=== PATIENT | female | born 1960 | race Caucasian/White ===

== ENCOUNTER 2018-02-01 06:18 | Emergency (ER) | payer BC ==
[2018-02-01 10:40] LABS: CHLORIDE,CL 103 mmol/L (98-107); SODIUM,NA 139 mmol/L (136-145)
--- NOTE | 2018-02-01 11:12 | EDM.PDOC ---
ED HPI GENERAL MEDICAL PROBLEM - General Chief Complaint: Chest Pain Stated Complaint: anterior chest pain Time Seen by Provider: 02/01/18 06:31 Source of Information: Reports: Patient History Limitations: Reports: No Limitations - History of Present Illness INITIAL COMMENTS - FREE TEXT/NARRATIVE: Pt. states that she developed onset of anterior chest pain while getting ready for work today. She states that she was feeling well prior to this. Denies any shortness of breath. No fever or chills. No weakness or hemoptysis. She denies any abdominal pain. No arm, jaw, neck or back pain. Pt. states that she recently stopped smoking. It is respirophasic in nature. She describes it as sharp. Onset: Today (617) Onset Date: 02/01/18 Onset Time: 06:18 Location: Reports: Chest - Related Data Allergies Allergy/AdvReac Type Severity Reaction Status Date / Time No Known Drug Allergies Allergy Other Verified 04/28/15 06:06 morphine AdvReac Nausea and Verified 04/28/15 06:06 Vomiting Home Meds: Home Meds Fish Oil/Borage/Flax/Om3,6,9#1 [[place] 3-6-9 Complex Softgel] 1 each PO DAILY 12/22 [History] Lutein/Minerals/Vit A,C & E [Ocuvite] 1 tab PO DAILY 02/07/14 [History] Metoprolol Succinate [Toprol Xl] 50 mg PO DAILY 02/07/14 [History] Vitamin B Complex [B Complex] 1 each PO DAILY 02/07/14 [History] Magnesium Oxide 400 mg PO DAILY 02/15/14 [History] Aspirin [Philip Chewable] 81 mg PO DAILY 07/18/14 [History] LORazepam 0.5 mg PO TID #3 tablet 03/03/15 [Rx] chlordiazePOXIDE [Librium] 10 mg PO TID #60 cap 03/03/15 [Rx] chlordiazePOXIDE [Librium] 25 mg PO BID #2 cap 03/03/15 [Rx] valACYclovir [Valtrex] 08/22/16 [History] Social & Family History - Tobacco Use Smoking Status *Q: Current Every Day Smoker Years of Tobacco use: 40 Packs/Tins Daily: 1 - Alcohol Use Days Per Week of Alcohol Use: 0 Number of Drinks Per Day: 0 Total Drinks Per Week: 0 - Recreational Drug Use Recreational Drug Use: No Drug Use in Last 12 Months: No ED ROS GENERAL - Review of Systems Review Of Systems: See Below Constitutional: Reports: No Symptoms HEENT: Reports: No Symptoms Respiratory: Reports: Pleuritic Chest Pain. Denies: Shortness of Breath, Wheezing, Cough, Sputum, Hemoptysis Cardiovascular: Reports: No Symptoms. Denies: Dyspnea on Exertion, Orthopnea, Palpitations, PND, Syncope Endocrine: Reports: No Symptoms GI/Abdominal: Reports: No Symptoms : Reports: No Symptoms Musculoskeletal: Reports: No Symptoms Skin: Reports: No Symptoms Neurological: Reports: No Symptoms Psychiatric: Reports: No Symptoms Hematologic/Lymphatic: Reports: No Symptoms Immunologic: Reports: No Symptoms ED EXAM, GENERAL - Physical Exam Exam: See Below Exam Limited By: No Limitations General Appearance: Alert, WD/WN, No Apparent Distress Respiratory/Chest: No Respiratory Distress, Lungs Clear, Normal Breath Sounds, No Accessory Muscle Use, Chest Non-Tender Cardiovascular: Normal Peripheral Pulses, Regular Rate, Rhythm, No Edema, No Gallop, No JVD, No Murmur, No Rub Peripheral Pulses: 3+: Radial (L), Radial (R) GI/Abdominal: Normal Bowel Sounds, Soft, Non-Tender, No Organomegaly, No Distention, No Abnormal Bruit, No Mass Back Exam: Normal Inspection, Full Range of Motion, NT Extremities: Normal Inspection, Normal Range of Motion, Non-Tender, Normal Capillary Refill, No Pedal Edema Neurological: Alert, Oriented, CN II-XII Intact, Normal Cognition, Normal Gait, Normal Reflexes, No Motor/Sensory Deficits Psychiatric: Normal Affect, Normal Mood Skin Exam: Warm, Dry, Intact, Normal Color, No Rash Course - Orders/Labs/Meds Orders: Active Orders 24 hr Category Date Time Status Chest 2V [CR] Routine Exams 02/01/18 06:30 Taken Labs: Laboratory Tests 02/01/18 02/01/18 02/01/18 Range/Units 06:48 06:48 06:48 WBC 6.8 (4.0-10.0) x10^3/uL RBC 4.19 (4.00-5.50) x10^6/uL Hgb 14.3 (12.0-16.0) g/dL Hct 43.5 (33.0-47.0) % MCV 103.8 H D (78.0-93.0) fL MCH 34.1 H (26.0-32.0) pg MCHC 32.9 (32.0-36.0) g/dL RDW Coeff of Álvaro 13.2 (10.0-15.0) % Plt Count 159 (130-400) x10^3/uL Neut % (Auto) 61.0 (50.0-80.0) % Lymph % (Auto) 27.5 (25.0-50.0) % Swift % (Auto) 7.5 (2.0-11.0) % Eos % (Auto) 3.4 (0.0-4.0) % Baso % (Auto) 0.6 (0.2-1.2) % D-Dimer, Quantitative < 0.19 (<=0.58) mg/LFEU Sodium 139 (136-145) mmol/L Potassium 4.7 (3.5-5.1) mmol/L Chloride 103 (98-107) mmol/L Carbon Dioxide 28 (21-32) mmol/L BUN 17 (7-18) mg/dL Creatinine 0.8 (0.55-1.02) mg/dL Est Cr Clr Drug Dosing TNP Estimated GFR (MDRD) > 60 Glucose 120 H (74-106) mg/dL Calcium 8.6 (8.5-10.1) mg/dL POC Troponin I (0.00-0.08) ng/mL 02/01/18 Range/Units 06:48 WBC (4.0-10.0) x10^3/uL RBC (4.00-5.50) x10^6/uL Hgb (12.0-16.0) g/dL Hct (33.0-47.0) % MCV (78.0-93.0) fL MCH (26.0-32.0) pg MCHC (32.0-36.0) g/dL RDW Coeff of Álvaro (10.0-15.0) % Plt Count (130-400) x10^3/uL Neut % (Auto) (50.0-80.0) % Lymph % (Auto) (25.0-50.0) % Swift % (Auto) (2.0-11.0) % Eos % (Auto) (0.0-4.0) % Baso % (Auto) (0.2-1.2) % D-Dimer, Quantitative (<=0.58) mg/LFEU Sodium (136-145) mmol/L Potassium (3.5-5.1) mmol/L Chloride (98-107) mmol/L Carbon Dioxide (21-32) mmol/L BUN (7-18) mg/dL Creatinine (0.55-1.02) mg/dL Est Cr Clr Drug Dosing Estimated GFR (MDRD) Glucose (74-106) mg/dL Calcium (8.5-10.1) mg/dL POC Troponin I 0.00 (0.00-0.08) ng/mL Departure - Departure Time of Disposition: 07:37 Disposition: Home, Self-Care 01 Condition: Good Clinical Impression: Atypical chest pain - Discharge Information Referrals: PCP,Unknown [Primary Care Provider] - Forms: ED Department Discharge - My Orders Last 24 Hours: My Active Orders 02/01/18 06:30 Chest 2V [CR] Routine - Assessment/Plan Last 24 Hours: My Active Orders 02/01/18 06:30 Chest 2V [CR] Routine
[2018-02-01] MEDS ORDERED: Ketorolac 60 MG/2 ML SDV IM ONE (12:07)
== END 2018-02-01 07:37 | disposition home or self-care (01) ==
LOC: VM.ED 06:18
DX: R07.89 Other chest pain (principal); F17.210 Nicotine dependence, cigarettes, uncomplicated; Z79.82 Long term (current) use of aspirin; Z79.899 Other long term (current) drug therapy; Z88.5 Allergy status to narcotic agent
CPT/HCPCS: 36415; 71046; 80048; 84484; 85025; 85379; 96372; 99285; J1885

== ENCOUNTER 2019-03-31 10:10 | Day surgery (SDC) | payer BC ==
[~2019-03-31 10:10] MED LIST: Lactated Ringers 1,000 ML IV SCH; Sodium Chloride 0.9% 10 ML Syringe FLUSH PRN
[2019-03-31] MEDS ORDERED: Albuterol/Ipratropium 3.0-0.5 MG/3 ML Neb Soln NEB ONE (11:18)
[2019-03-31] MEDS ORDERED: fentaNYL 100 MCG/2 ML SDV ONE (11:28)
[2019-03-31] MEDS ORDERED: Propofol 200 MG/20 ML SDV ONE ×2 (11:28→12:28)
--- NOTE | 2019-03-31 12:57 | OR ---
PREOPERATIVE DIAGNOSES: 1. Family history of colon cancer. 2. Personal history of polyps. POSTOPERATIVE DIAGNOSIS: Sigmoid diverticulosis, otherwise normal exam. PROCEDURE PROPOSED: Total flexible colonoscopy. PROCEDURE DONE: Total flexible colonoscopy. INDICATION: This is a 58-year-old female, who comes in for colonic surveillance every 3 years because of a strong family history of colon cancer. She had a brother with colon cancer, a grandparent, and other members who had polyps. Has other multiple cancers in the family. Last examination was 3 years ago. TECHNIQUE: The patient was brought to the endoscopy suite, placed in left lateral decubitus position. She was sedated per [employer]OVERER with propofol. The flexible video colonoscope was then passed transanally and under visualization advanced to the cecum. Examination revealed normal ascending, transverse, descending colon. Sigmoid colon revealed diverticulosis with some tortuosity and the rectum was normal. There was no evidence of any polyps, colitis, or other abnormalities, and the scope was then withdrawn. The patient tolerated the procedure well. FINAL IMPRESSION: 1. Sigmoid diverticulosis, otherwise a normal exam. 2. Family history of colon cancer. 3. Personal history of polyps. PLAN: She should continue with colonoscopic exams every 3 to 5 years hereafter. SCM: 03/31/2019 12:36:11 MODL: 03/31/2019 12:47:28 /[id number]
[2019-03-31 13:12] VITALS: BP 171/85
== END 2019-03-31 14:04 | disposition home or self-care (01) ==
LOC: VM.SDS 10:10
PROVIDERS: ATTEND Surgery
DX: K57.30 Diverticulosis of large intestine without perforation or abscess without bleeding (principal); Z86.010 Personal history of colon polyps; Z80.0 Family history of malignant neoplasm of digestive organs; K21.9 Gastro-esophageal reflux disease without esophagitis; I10 Essential (primary) hypertension; M19.90 Unspecified osteoarthritis, unspecified site; D50.9 Iron deficiency anemia, unspecified; R79.89 Other specified abnormal findings of blood chemistry; F43.23 Adjustment disorder with mixed anxiety and depressed mood; Z87.891 Personal history of nicotine dependence; Z98.890 Other specified postprocedural states; Z79.82 Long term (current) use of aspirin; Z79.899 Other long term (current) drug therapy; Z88.5 Allergy status to narcotic agent; Z87.09 Personal history of other diseases of the respiratory system
CPT/HCPCS: 94640; J2704; J3010; J7120; J7620-GY

== ENCOUNTER 2021-06-19 12:08 | Day surgery (SDC) | payer BC ==
[2021-06-19] MEDS ORDERED: Propofol 200 MG/20 ML SDV ONE (13:30)
[2021-06-19 14:09] VITALS: BP 159/79; PULSE 58
--- NOTE | 2021-06-20 08:14 | OR ---
SURGERY DATE: 06/19/2021. REFERRING PROVIDER: KURT Rasmussen PRE-OPERATIVE DIAGNOSES: 1. Chronic left upper quadrant abdominal pain along with cramps and bloating. The patient does have history of chronic alcohol use with suggestion of cirrhosis noted on previous imaging. She is on recent meloxicam 15 mg daily as well as chronic Boniva. She states she quit smoking about 2 months ago. She does drink nonalcoholic drinks lately. 2. Positive family history of gastric cancer in father. POST-OPERATIVE DIAGNOSES: 1. Moderate to significant diffuse gastritis. The patient had friable mucosa throughout. Cold biopsies were taken from the antrum x4 bites along with upper stomach body x2 bites. Mucosa was friable and bled easily. 2. Small healing ulcerations noted to the pyloric area. Biopsy of these was included in the above antral biopsy bites. PROCEDURE: Esophagogastroduodenoscopy with cold biopsy x2 sites (antrum of stomach and upper body of stomach). SURGEON: Jatin Falcon M.D. ANESTHESIA: Monitored anesthesia care. Kateryna is a 60-year-old female who was brought to the endoscopy suite after discussion of risks and benefits (including but not limited to reaction to medication, bleeding, infection, aspiration, perforation). Informed consent was obtained for monitored anesthesia care and esophagogastroduodenoscopy along with possible biopsy and/or dilatation. Pre-procedure exam including oral cavity was unremarkable. IV, oxygen, and monitors were placed. Patient was placed in the left lateral position and sedation was administered. A bite block was placed gently and scope lightly lubricated and passed through the bite block and over the tongue. Hypopharynx and vocal cords were visualized and unremarkable. Scope was passed through the cricopharynx and into the esophagus. The scope was then passed through the distal esophagus and the GE junction was visualized and photographed. The GE junction was unremarkable. Vocal cords were visualized and unremarkable. The scope was advanced into the stomach and gastric shi was suctioned. Pylorus was identified and intubated and then the scope was advanced to the third portion of the duodenum. The second and third portions of the duodenum were unremarkable. The duodenal bulb was visualized and unremarkable. The scope was brought back into the stomach. The pylorus and the antrum were remarkable for moderate to significant gastritis with some small healing ulcerations to the pyloric area. Cold biopsy x4 bites was taken from this area to check for H. pylori and sent for path. The scope was retroflexed to visualize the angularis, fundus, body, and cardia. These were remarkable for moderate to significant diffuse gastritis with friable mucosa. Cold biopsy x2 bites taken from the upper body area. The patient's stomach lining had lost much of the rugae and instead had almost cobblestone like appearance. The stomach was desufflated of air and then the scope was slowly withdrawn, and the esophagus was closely visualized during withdrawal all the way into the posterior pharynx and this was unremarkable. The patient tolerated the procedure well and went to recovery in stable condition. The patient was monitored until at baseline status. Findings and discharge instructions were reviewed and the patient was discharged in good condition. COMPLICATIONS: None. TOTAL TIME: 9 minutes. ESTIMATED BLOOD LOSS: 2 to 3 mL. RECOMMENDATIONS/FOLLOW-UP: We will await results of path report and send a letter with results. In the meantime, I am going to write 2 prescriptions; 1 for pantoprazole 40 mg daily long-term and another for sucralfate 1 g 4 times a day for the next 10 days to help coat the stomach and kick start healing process. I would recommend the patient to avoid NSAIDs, alcohol, and any tobacco. PCP could consider changing the meloxicam to Celebrex if needing anti- inflammatory. May also need to consider changing bisphosphonate if inflammation not improved and/or symptoms ongoing. I would like to kindly thank Jonas Gaona for this referral. DMB: 06/19/2021 14:08:34 MODL: 06/19/2021 15:05:58 /[id number]
== END 2021-06-19 15:05 | disposition home or self-care (01) ==
LOC: VM.SDS 12:08
PROVIDERS: ATTEND Family Medicine
DX: K25.9 Gastric ulcer, unspecified as acute or chronic, without hemorrhage or perforation (principal); K29.60 Other gastritis without bleeding; K31.89 Other diseases of stomach and duodenum; Z79.899 Other long term (current) drug therapy; Z87.891 Personal history of nicotine dependence; Z80.0 Family history of malignant neoplasm of digestive organs; Z83.71 Family history of colonic polyps
CPT/HCPCS: 00731; J2704; J7120

== ENCOUNTER 2022-07-09 10:54 | Day surgery (SDC) | payer BC, OTHER ==
[~2022-07-09 10:54] MED LIST changes: +Propofol 200 MG/20 ML SDV ONE; -Sodium Chloride 0.9% 10 ML Syringe FLUSH PRN; +fentaNYL 100 MCG/2 ML SDV ONE
[2022-07-09] MEDS ORDERED: Propofol 200 MG/20 ML SDV ONE (12:58)
[2022-07-09 13:46] VITALS: BP 127/59; PULSE 64
== END 2022-07-09 14:36 | disposition home or self-care (01) ==
LOC: VM.SDS 10:54
PROVIDERS: ATTEND Family Medicine
DX: D12.3 Benign neoplasm of transverse colon (principal); D12.2 Benign neoplasm of ascending colon; K64.4 Residual hemorrhoidal skin tags; I10 Essential (primary) hypertension; E78.5 Hyperlipidemia, unspecified; F32.A Depression, unspecified; J45.909 Unspecified asthma, uncomplicated; F17.210 Nicotine dependence, cigarettes, uncomplicated; Z98.890 Other specified postprocedural states; Z79.899 Other long term (current) drug therapy; Z88.8 Allergy status to other drugs, medicaments and biological substances
CPT/HCPCS: 00811; 45380; 45385; J2704; J3010; J7120

== ENCOUNTER → 2022-08-21 | Day surgery (SDC) | payer OTHER ==
[~2022-08-21] MED LIST changes: +Lactated Ringers 1,000 ML IV ONE; -Lactated Ringers 1,000 ML IV SCH
== END ==
LOC: VM.SDS 06:00
DX: K31.89 Other diseases of stomach and duodenum (principal); K21.9 Gastro-esophageal reflux disease without esophagitis; Z88.6 Allergy status to analgesic agent; Z79.899 Other long term (current) drug therapy; Z87.891 Personal history of nicotine dependence
CPT/HCPCS: 00811; J2704; J3010; J7120

== ENCOUNTER 2023-01-25 04:40 | Emergency (ER) | payer OTHER ==
[2023-01-25] MEDS ORDERED: Sodium Chloride 0.9% 10 ML Syringe FLUSH PRN (04:47)
[2023-01-25] MEDS ORDERED: Nitroglycerin 0.4 MG Tab.SL SL ONE (04:49)
[2023-01-25] MEDS ORDERED: Ondansetron 4 MG/2 ML SDV IVPUSH ONE (04:55)
[2023-01-25] MEDS ORDERED: HYDROmorphone 0.5 MG/0.5 ML Syringe IVPUSH ONE (04:56)
[2023-01-25] MEDS ORDERED: Sodium Chloride 0.9% 1,000 ML IV SCH (05:00)
[2023-01-25 05:21] LABS: PTT,PARTIAL THROMBOPLSTIN TIME 31.6 SEC (23.6-33.6)
[2023-01-25 05:23] LABS: ANION GAP 10.3 mmol/L (5-15); CHLORIDE,CL 105 mmol/L (98-107); ESTIMATED GFR 83 mL/min (>=60); SODIUM,NA 141 mmol/L (136-145)
[2023-01-25 05:40] LABS: CORONAVIRUS COVID-19 NAA NEGATIVE (NEGATIVE); RESPIRATORY SYNCYTIAL VIR NAA NEGATIVE (NEGATIVE)
[2023-01-25] MEDS ORDERED: Take Home: Acetaminophen/HYDROcodone 325-5 MG, 5 Tab Pack PO ONE (05:45)
[2023-01-25] MEDS ORDERED: Take Home: Ondansetron 4 MG Tab.DIS, 5 Tab Pack PO ONE (05:45)
[2023-01-25 06:14] VITALS: BP 136/66; PULSE 55
== END 2023-01-25 06:05 | disposition home or self-care (01) ==
LOC: VM.ED 04:40
DX: R10.13 Epigastric pain (principal); E78.00 Pure hypercholesterolemia, unspecified; I10 Essential (primary) hypertension; Z88.5 Allergy status to narcotic agent; Z79.899 Other long term (current) drug therapy; Z20.822 Contact with and (suspected) exposure to COVID-19
CPT/HCPCS: 0241U; 71045; 80053; 82150; 83690; 83735; 83880; 84100; 84484; 85025; 85610; 85730; 86140; 96361; 96374; 96375; 99284; A9270; J1170; J2405; J7030; Q0162; 36415; 93010

== ENCOUNTER 2023-11-26 09:43 | Emergency (ER) | payer OTHER, BC ==
[2023-11-26 10:26] LABS: BASOPHILS PERCENT AUTO 0.4 % (0.2-1.2); EOSINOPHILS ABSOLUTE AUTO 0.1 x10^3/uL (0.0-0.5); EOSINOPHILS PERCENT AUTO 1.3 % (0.0-4.0); HEMATOCRIT 41.5 % (33.0-47.0); HEMOGLOBIN 13.5 g/dL (12.0-16.0); IMMATURE GRAN ABSOLUTE AUTO 0.04 x10^3/uL (0.00-0.07); LYMPHOCYTES ABSOLUTE AUTO 1.1 x10^3/uL (1.0-4.8); LYMPHOCYTES PERCENT AUTO 16.5 % (25.0-50.0); MEAN CORPUSCULAR HEMOGLOBIN 34.6 pg (26.0-32.0); MEAN CORPUSCULAR HGB CONC 32.5 g/dL (32.0-36.0); MEAN CORPUSCULAR VOLUME 106.4 fL (78.0-93.0); MONOCYTES ABSOLUTE AUTO 0.6 x10^3/uL (0.0-0.8); MONOCYTES PERCENT AUTO 8.3 % (2.0-11.0); NEUTROPHILS PERCENT AUTO 72.9 % (50.0-80.0); PLATELET COUNT,PLT 130 x10^3/uL (130-400); WHITE BLOOD CELL COUNT,WBC 6.9 x10^3/uL (4.0-10.0)
[2023-11-26 10:58] LABS: ALANINE AMINOTRANSFERASE,ALT 46 U/L (14-59); ALBUMIN 3.1 g/dL (3.4-5.0); ALKALINE PHOSPHATASE 319 U/L (46-116); ASPARTATE AMNIOTRANSFERASE,AST 46 U/L (15-37); BLOOD UREA NITROGEN,BUN 20 mg/dL (7-18); CALCIUM 8.9 mg/dL (8.5-10.1); CARBON DIOXIDE,CO2 28 mmol/L (21-32); CHLORIDE,CL 105 mmol/L (98-107); CREATININE 0.9 mg/dL (0.55-1.02); GLUCOSE RANDOM 106 mg/dL (70-99); LIPASE 158 U/L (19-71); POTASSIUM,K 4.4 mmol/L (3.5-5.1); PROTEIN TOTAL,TP 7.5 g/dL (6.4-8.2); SODIUM,NA 141 mmol/L (136-145)
[2023-11-26 10:59] LABS: ANION GAP 12.4 mmol/L (5-15); ESTIMATED GFR 72 mL/min (>=60)
[2023-11-27 08:32] VITALS: BP 162/84; PULSE 58
== END 2023-11-26 11:46 | disposition home or self-care (01) ==
LOC: VM.ED 09:43
DX: R07.89 Other chest pain (principal); R10.13 Epigastric pain; I10 Essential (primary) hypertension; E78.00 Pure hypercholesterolemia, unspecified; Z79.899 Other long term (current) drug therapy; Z88.5 Allergy status to narcotic agent
CPT/HCPCS: 71045; 80053; 83690; 84484; 85025; 93005; 99285